=== PATIENT | female | born 1975 | race Two or more races ===

== ENCOUNTER 2017-07-20 14:04 | Inpatient (IN) | payer OTHER ==
[~2017-07-20] VITALS: Ht 165.1 cm; Wt 90.5 kg
[~2017-07-20 14:04] MED LIST: DULO60CA7 PO; OXYC-307 PO; PREN1TAB60 PO; TOPI100T24 PO
[2017-07-20 15:04] VITALS: BP 99/61
[2017-07-20] MEDS ORDERED: D5%-LACTATED RINGERS 1,000 ML IV SCH (17:04)
[2017-07-20] MEDS ORDERED: OXYTOCIN 30U/ 0.9% NaCL 500ML 500 ML IV ONE (17:04)
[2017-07-20] MEDS ORDERED: FLU VACCINE PER PHARMACY IM ONE (17:30)
[2017-07-20] MEDS ORDERED: FLU VACC QS2017-18 (36MOS+) UP/PF 0.5 ML IM-VACC ONE (17:30)
[2017-07-20] MEDS ORDERED: FENTANYL PF 100 MCG/2ML IV PRN (17:30)
[2017-07-20] MEDS ORDERED: ONDANSETRON 2MG/ML, 2ML IVPush PRN (17:30)
[2017-07-20 17:35] LABS: HEMOGLOBIN 11.9 g/dL (11.7-16.4); WHITE BLOOD COUNT 11.6 x10^3/uL (3.4-10)
[2017-07-20] MEDS ORDERED: OXYTOCIN 30U/ 0.9% NaCL 500ML 500 ML ONE (17:45)
[2017-07-20] MEDS ORDERED: MISOPROSTOL 200 MCG TABLET ONE (17:46)
[2017-07-20] MEDS ORDERED: LIDOCAINE 1%, 20ML ONE (17:46)
[2017-07-20] MEDS ORDERED: NEWBORN KIT ONE (17:54)
[2017-07-20] MEDS: LACTATED RINGERS 1,000 ML IV SCH (18:19)
[2017-07-20] MEDS ORDERED: CALCIUM CARBONATE 500 MG TAB.CHEW ONE (18:46)
[2017-07-20] MEDS: CALCIUM CARBONATE 500 MG TAB.CHEW PO PRN (18:54)
[2017-07-20] MEDS ORDERED: OXYTOCIN 30U/ 0.9% NaCL 500ML 500 ML IV PRN (21:50)
[2017-07-20] MEDS ORDERED: FENTANYL PF 100 MCG/2ML ONE (23:04)
[2017-07-20] MEDS: FENTANYL PF 100 MCG/2ML IVPush PRN (23:06)
[2017-07-21] MEDS: LACTATED RINGERS 1,000 ML IV SCH ×6 (00:27→19:18)
[2017-07-21] MEDS ORDERED: FENTANYL PF 100 MCG/2ML ONE ×3 (00:38→05:27)
[2017-07-21] MEDS: FENTANYL PF 100 MCG/2ML IVPush PRN ×3 (00:41→05:30)
[2017-07-21] MEDS ORDERED: BUPIVACAINE/PF 0.25% ONE (08:12)
[2017-07-21] MEDS ORDERED: FENTANYL/BUPIV./NS/PF 250 ML EPIDCONT ONE (08:12)
[2017-07-21] MEDS ORDERED: EPHEDRINE 50 MG/ML, 1ML ONE ×2 (09:04→16:46)
[2017-07-21] MEDS: EPHEDRINE 50 MG/ML, 1ML IVPush PRN ×2 (09:07→09:19)
[2017-07-21] MEDS ORDERED: FENTANYL/BUPIV./NS/PF 250 ML EPIDCONT SCH (09:50)
[2017-07-21] MEDS ORDERED: CALCIUM CARBONATE 500 MG TAB.CHEW ONE (09:51)
[2017-07-21] MEDS: CALCIUM CARBONATE 500 MG TAB.CHEW PO PRN (09:52)
[2017-07-21] MEDS ORDERED: ONDANSETRON 2MG/ML, 2ML IVPush PRN ×2 (10:00→18:30)
[2017-07-21] MEDS ORDERED: LACTATED RINGERS 1,000 ML IVBOLUS PRN (10:00)
[2017-07-21] MEDS ORDERED: AMPICILLIN 2 GM in SODIUM CHLORIDE 0.9% 100 ML IV SCH (13:00)
[2017-07-21] MEDS ORDERED: AMPICILLIN 2 GM in SODIUM CHLORIDE 0.9% 50 ML IV SCH (13:00)
[2017-07-21] MEDS ORDERED: SODIUM CITRATE/CITRIC ACID 30 ML UDC ONE (16:30)
[2017-07-21] MEDS ORDERED: METOCLOPRAMIDE 5 MG/ML, 2ML ONE (16:30)
[2017-07-21] MEDS ORDERED: OXYTOCIN 30U/ 0.9% NaCL 500ML 500 ML IV SCH (16:32)
[2017-07-21] MEDS ORDERED: CEFAZOLIN 1,000 MG ONE (16:46)
[2017-07-21] MEDS ORDERED: OXYTOCIN 10 UNITS/ML, 1ML ONE (16:46)
[2017-07-21] MEDS ORDERED: LIDOCAINE/MPF 2%-EPI 1:200K, 20 ML ONE (16:50)
[2017-07-21] MEDS ORDERED: METOCLOPRAMIDE 5 MG/ML, 2ML IVPush ONE (17:00)
[2017-07-21] MEDS ORDERED: LACTATED RINGERS 1,000 ML IVBOLUS ONE (17:00)
[2017-07-21] MEDS ORDERED: SODIUM CITRATE/CITRIC ACID 30 ML UDC PO ONE (17:00)
[2017-07-21] MEDS ORDERED: AZITHROMYCIN 500 MG in SODIUM CHLORIDE 0.9% 250 ML IV ONE (17:30)
[2017-07-21] MEDS ORDERED: ONDANSETRON 2MG/ML, 2ML ONE (17:51)
[2017-07-21] MEDS ORDERED: KETOROLAC 30 MG/1 ML ONE (17:51)
[2017-07-21] MEDS ORDERED: morphine SULFATE 10 MG/ML, 1ML IV PRN (18:30)
[2017-07-21] MEDS ORDERED: FENTANYL PF 100 MCG/2ML IV PRN (18:30)
[2017-07-21] MEDS ORDERED: MEPERIDINE/PF 25MG/0.5ML IVPush PRN (18:30)
[2017-07-21] MEDS ORDERED: MIDAZOLAM 1 MG/ML, 2ML IV PRN (18:30)
[2017-07-21] MEDS ORDERED: EPHEDRINE 50 MG/ML, 1ML IVPush PRN (18:30)
[2017-07-21] MEDS ORDERED: OXYcodone 5 MG/5 ML ORAL.SOL UDC PO PRN (18:30)
[2017-07-21] MEDS ORDERED: PROMETHAZINE 25 MG/ML, 1ML IV PRN (18:30)
[2017-07-21] MEDS: OXYTOCIN 30U/ 0.9% NaCL 500ML 500 ML IV SCH (19:13)
[2017-07-21] MEDS ORDERED: LACTATED RINGERS 1,000 ML IV SCH (19:13)
[2017-07-21] MEDS: IBUPROFEN 600 MG TABLET PO SCH (19:30)
[2017-07-21] MEDS ORDERED: MISOPROSTOL 200 MCG TABLET PR PRN (19:30)
[2017-07-21] MEDS ORDERED: morphine SULFATE 10 MG/ML, 1ML IVPush PRN ×2 (19:30)
[2017-07-21] MEDS ORDERED: CALCIUM CARBONATE 500 MG TAB.CHEW PO PRN (19:30)
[2017-07-21] MEDS ORDERED: OXYcodone IR 5MG TABLET PO PRN (19:30)
[2017-07-21] MEDS ORDERED: ONDANSETRON 2MG/ML, 2ML IV PRN (19:30)
[2017-07-21] MEDS ORDERED: SIMETHICONE 80 MG CHEW TAB PO PRN (19:30)
[2017-07-21 20:20] VITALS: BP 117/70
[2017-07-21] MEDS: ACETAMINOPHEN 325 MG TABLET PO SCH (23:14)
[2017-07-21 23:30] VITALS: BP 130/69
[2017-07-22] MEDS: KETOROLAC 30 MG/1 ML IV SCH ×4 (00:42→18:29)
[2017-07-22 01:26] LABS: HEMATOCRIT 30.1 % (34.6-47.8); HEMOGLOBIN 10.1 g/dL (11.7-16.4)
[2017-07-22] MEDS: IBUPROFEN 600 MG TABLET PO SCH ×4 (01:30→19:30)
[2017-07-22] MEDS: OXYcodone IR 5MG TABLET PO PRN ×3 (04:10→15:55)
[2017-07-22 04:15] VITALS: BP 112/68
[2017-07-22] MEDS: ACETAMINOPHEN 325 MG TABLET PO SCH ×3 (05:11→18:29)
[2017-07-22] MEDS: LACTATED RINGERS 1,000 ML IV SCH ×2 (05:13→15:13)
[2017-07-22] MEDS: OXYTOCIN 30U/ 0.9% NaCL 500ML 500 ML IV SCH ×2 (05:13→15:13)
[2017-07-22 07:22] VITALS: BP 112/63
[2017-07-22] MEDS: PRENATAL VIT/IRON/FA 1 EACH TABLET PO SCH (09:00)
[2017-07-22] MEDS ORDERED: KETOROLAC 30 MG/1 ML ONE (18:10)
[2017-07-22 19:20] VITALS: BP 115/66
[2017-07-23] MEDS: ACETAMINOPHEN 325 MG TABLET PO SCH ×4 (00:17→17:59)
[2017-07-23] MEDS: OXYcodone IR 5MG TABLET PO PRN ×4 (00:18→17:59)
[2017-07-23] MEDS: IBUPROFEN 600 MG TABLET PO SCH ×4 (00:18→17:59)
[2017-07-23] MEDS: DOCUSATE 100 MG CAPSULE PO PRN ×2 (00:19→12:07)
[2017-07-23] MEDS: LACTATED RINGERS 1,000 ML IV SCH ×2 (01:13→02:11)
[2017-07-23] MEDS: OXYTOCIN 30U/ 0.9% NaCL 500ML 500 ML IV SCH ×2 (01:13→02:11)
[2017-07-23 08:22] VITALS: BP 116/78
[2017-07-23] MEDS: PRENATAL VIT/IRON/FA 1 EACH TABLET PO SCH (12:08)
[2017-07-23 20:00] VITALS: BP 121/79
[2017-07-24] MEDS: OXYcodone IR 5MG TABLET PO PRN ×3 (00:05→12:30)
[2017-07-24] MEDS: IBUPROFEN 600 MG TABLET PO SCH ×3 (00:05→12:30)
[2017-07-24] MEDS: DOCUSATE 100 MG CAPSULE PO PRN ×2 (00:05→12:30)
[2017-07-24] MEDS: ACETAMINOPHEN 325 MG TABLET PO SCH ×3 (00:06→12:30)
[2017-07-24] MEDS ORDERED: IBUP-1222 PO (03:07)
[2017-07-24] MEDS ORDERED: OXYC-302 PO (03:08)
[2017-07-24 07:30] VITALS: BP 127/83
== END 2017-07-24 16:21 | disposition home or self-care (01) | DRG 766 ==
LOC: LDOP 14:04 → LDIP 17:04 → 2NW 07-21 19:57
PROVIDERS: ADMIT Obstetrics & Gynecology; ATTEND Obstetrics & Gynecology
PROC: 10D00Z1 Extraction of Products of Conception, Low, Open Approach (ICD-10-PCS; principal; 2017-07-21)
DX: O62.0 Primary inadequate contractions (principal); O76 Abnormality in fetal heart rate and rhythm complicating labor and delivery; O42.92 Full-term premature rupture of membranes, unspecified as to length of time between rupture and onset of labor; Z37.0 Single live birth; O09.523 Supervision of elderly multigravida, third trimester; Z3A.40 40 weeks gestation of pregnancy
CPT/HCPCS: 36415; 76815; 82803; 85025; 86850; 86900; 88307; 90686; J0290; J0456; J0690; J1885; J2405; J3010; J3490; J2590; J2765; J7050; J7120; J7121

== ENCOUNTER 2017-10-03 13:53 | Observation (INO) | payer OTHER ==
[~2017-10-03] VITALS: Ht 165.1 cm; Wt 75.9 kg
[~2017-10-03 13:53] MED LIST changes: +IBUP-1222 PO; +OXYC-302 PO
[2017-10-03] MEDS ORDERED: LACTATED RINGERS 1,000 ML IV SCH ×2 (14:21→14:37)
[2017-10-03 14:42] VITALS: BP 99/75
[2017-10-03] MEDS ORDERED: LIDOCAINE 1%, 2ML SQ PRN (15:00)
[2017-10-03] MEDS ORDERED: PLEASE ENTER HEIGHT AND WEIGHT MC SCH (15:00)
[2017-10-03 15:05] LABS: HCG UR SG 1.024 (1.003-1.030)
[2017-10-03] MEDS ORDERED: EPINEPHRINE 1 MG/ML, 1ML ONE (15:14)
[2017-10-03] MEDS ORDERED: BUPIVACAINE/PF 0.25% ONE (15:14)
[2017-10-03] MEDS ORDERED: SILVER NITRATE STICK TP ONE (15:14)
[2017-10-03 15:17] LABS: BASOPHILS # (AUTO) 0.02 x10^3/uL (0-0.1); BASOPHILS % (AUTO) 0 % (0-1); EOSINOPHILS # (AUTO) 0.16 x10^3/uL (0-0.4); EOSINOPHILS % (AUTO) 2 % (1-7); LYMPHOCYTES % (AUTO) 29 % (22-44); MD NO; MEAN CORPUSCULAR HEMOGLOBIN 27.9 pg (27.0-34.8); MEAN CORPUSCULAR HGB CONC 33.4 g/dL (32.4-35.8); MEAN CORPUSCULAR VOLUME 83.7 fL (80-100); MEAN PLATELET VOLUME 7.3 fL (7.4-10.4); MONOCYTES # (AUTO) 0.75 x10^3/uL (0.2-0.8); MONOCYTES % (AUTO) 9 % (2-9); NEUTROPHILS # (AUTO) 5.05 x10^3/uL (1.8-6.8); NEUTROPHILS % (AUTO) 60 % (42-75); PLATELET COUNT 352 x10^3/uL (130-400); RED BLOOD COUNT 4.48 x10^6/uL (3.82-5.3); RED CELL DISTRIBUTION WIDTH 15.5 % (9.6-15.2)
[2017-10-03] MEDS ORDERED: MIDAZOLAM 1 MG/ML, 2ML ONE (15:20)
[2017-10-03] MEDS ORDERED: FENTANYL PF 100 MCG/2ML ONE ×2 (15:21→17:11)
[2017-10-03] MEDS ORDERED: SUCCINYLCHOLINE 20 MG/ML, 10ML ONE (15:24)
[2017-10-03] MEDS ORDERED: ROCURONIUM 10 MG/ML,10ML ONE (15:24)
[2017-10-03] MEDS ORDERED: PROPOFOL 10 MG/ML, 20ML ONE (15:24)
[2017-10-03] MEDS ORDERED: CEFAZOLIN 1,000 MG ONE (15:36)
[2017-10-03] MEDS ORDERED: ACETAMINOPHEN 325 MG TABLET PO PRN (16:00)
[2017-10-03] MEDS ORDERED: HYDROmorphone 1 MG/ML, 1ML IV PRN (16:00)
[2017-10-03] MEDS ORDERED: EPHEDRINE 50 MG/ML, 1ML IVPush PRN (16:00)
[2017-10-03] MEDS ORDERED: PROMETHAZINE 25 MG/ML, 1ML IV PRN (16:00)
[2017-10-03] MEDS ORDERED: OXYcodone 5 MG/5 ML ORAL.SOL UDC PO PRN (16:00)
[2017-10-03] MEDS ORDERED: LABETALOL 5MG/ML, 20ML IV PRN (16:00)
[2017-10-03] MEDS ORDERED: hydrALAzine 20 MG/ML, 1ML IV PRN (16:00)
[2017-10-03] MEDS ORDERED: ALBUTEROL SULFATE 2.5 MG/3 ML NPPB PRN (16:00)
[2017-10-03] MEDS ORDERED: METOPROLOL 1 MG/ML, 5ML IV PRN (16:00)
[2017-10-03] MEDS ORDERED: ONDANSETRON 2MG/ML, 2ML IVPush PRN (16:00)
[2017-10-03] MEDS ORDERED: NEOSTIGMINE 1 MG/ML, 10ML ONE (16:51)
[2017-10-03] MEDS ORDERED: DEXAMETHASONE 4 MG/ML, 1ML ONE ×2 (16:51)
[2017-10-03] MEDS ORDERED: GLYCOPYRROLATE 0.4 MG/2 ML, 2ML ONE (16:51)
[2017-10-03] MEDS ORDERED: ONDANSETRON 2MG/ML, 2ML ONE (16:51)
[2017-10-03] MEDS ORDERED: KETOROLAC 30 MG/1 ML ONE (16:52)
[2017-10-03] MEDS ORDERED: ACETAMINOPHEN 650 MG/20.3 ML UDC ONE (17:11)
[2017-10-03] MEDS ORDERED: OXYcodone 5 MG/5 ML ORAL.SOL UDC ONE (17:11)
[2017-10-03] MEDS: FENTANYL PF 100 MCG/2ML IV PRN ×4 (17:20→18:09)
[2017-10-03] MEDS ORDERED: MEPERIDINE/PF 50 MG/ML ONE (17:29)
[2017-10-03] MEDS: MEPERIDINE/PF 25MG/0.5ML IVPush PRN ×2 (17:31→17:40)
[2017-10-03] MEDS ORDERED: ONDANSETRON 2MG/ML, 2ML IV PRN (19:30)
[2017-10-03] MEDS ORDERED: KETOROLAC 30 MG/1 ML IV PRN (19:30)
[2017-10-03] MEDS ORDERED: morphine SULFATE 10 MG/ML, 1ML IV PRN (19:30)
[2017-10-03] MEDS: LACTATED RINGERS 1,000 ML IV SCH (19:30)
[2017-10-03] MEDS: IBUPROFEN 600 MG TABLET PO SCH (22:33)
[2017-10-04 00:31] VITALS: BP 122/78
[2017-10-04] MEDS: OXYcodone/APAP 5/325MG TABLET PO PRN ×3 (00:50→13:28)
[2017-10-04] MEDS: LACTATED RINGERS 1,000 ML IV SCH ×2 (03:30→11:30)
[2017-10-04 04:57] VITALS: BP 105/67
[2017-10-04 06:55] VITALS: BP 105/60
[2017-10-04] MEDS: IBUPROFEN 600 MG TABLET PO SCH (07:29)
[2017-10-04] MEDS ORDERED: PRENATAL VIT/IRON/FA 1 EACH TABLET PO SCH (09:00)
[2017-10-04 13:00] VITALS: BP 118/72
[2017-10-04] MEDS ORDERED: OXYC1TAB7 PO (13:46)
[2017-10-04] MEDS ORDERED: IBUP-1222 PO (13:47)
== END 2017-10-04 14:00 | disposition home or self-care (01) ==
LOC: OR 13:53 → 4NOR 18:30 → OR 22:41 → 4NOR 22:42 → DCLOUNGE 10-04 13:43
PROVIDERS: ADMIT Obstetrics & Gynecology; ATTEND Obstetrics & Gynecology
DX: N83.292 Other ovarian cyst, left side (principal); T83.32XA Displacement of intrauterine contraceptive device, initial encounter; Z30.2 Encounter for sterilization
CPT/HCPCS: 36415; 49322; 58562; 58661; 81025; 85025; 88302; G0378; J0171; J0330; J0690; J1100; J1885; J2175; J2250; J2405; J2704; J2710; J3010; J3490; J7120

== ENCOUNTER → 2018-09-03 | Outpatient (CLI) | payer OTHER ==
[~2018-09-03] MED LIST changes: +OXYC1TAB7 PO
== END | disposition home or self-care (01) ==
LOC: ROC 09:04
PROVIDERS: ATTEND Radiology Radiation Oncology
DX: C53.9 Malignant neoplasm of cervix uteri, unspecified (principal)
CPT/HCPCS: 99214; G0463

== ENCOUNTER 2018-10-08 05:38 | Day surgery (SDC) | payer OTHER, MEDICAID ==
[2018-10-05 13:04] LABS: MEAN CORPUSCULAR HEMOGLOBIN 30.2 pg (27.0-34.8); MEAN CORPUSCULAR HGB CONC 33.7 g/dL (32.4-35.8); MEAN CORPUSCULAR VOLUME 89.6 fL (80-100); MEAN PLATELET VOLUME 6.4 fL (7.4-10.4); PLATELET COUNT 316 x10^3/uL (130-400); RED BLOOD COUNT 4.62 x10^6/uL (3.82-5.3); RED CELL DISTRIBUTION WIDTH 14.8 % (9.6-15.2)
[2018-10-05 13:06] LABS: INTERNATIONAL NORMALIZED RATIO 0.95 (0.93-1.1); PROTHROMBIN TIME 10.1 Seconds (9.6-11.5)
[2018-10-05 13:07] LABS: ALBUMIN 3.5 g/dL (3.4-5.0); ANION GAP 8 mmol/L (5-15); CALCIUM 8.9 mg/dL (8.5-10.1); CHLORIDE 101 mmol/L (98-107)
[2018-10-05 13:11] LABS: ALANINE AMINOTRANSFERASE 82 U/L (12-78); ALKALINE PHOSPHATASE 44 U/L (45-117); BILIRUBIN,TOTAL 0.6 mg/dL (0.2-1.0); CREATININE 0.99 mg/dL (0.55-1.02); TOTAL PROTEIN 7.1 g/dL (6.4-8.2)
[2018-10-05 13:21] LABS: BASOPHILS # (AUTO) 0.01 x10^3/uL (0-0.1); BASOPHILS % (AUTO) 0 % (0-1); EOSINOPHILS # (AUTO) 0.01 x10^3/uL (0-0.4); EOSINOPHILS % (AUTO) 0 % (1-7); LYMPHOCYTES % (AUTO) 4 % (22-44); MD SCAN; MONOCYTES # (AUTO) 0.42 x10^3/uL (0.2-0.8); MONOCYTES % (AUTO) 5 % (2-9); NEUTROPHILS # (AUTO) 7.05 x10^3/uL (1.8-6.8); NEUTROPHILS % (AUTO) 90 % (42-75)
[~2018-10-08] VITALS: Ht 165.1 cm; Wt 74.1 kg
[~2018-10-08 05:38] MED LIST changes: +DEXA4TAB66 PO; +IBUP200T64 PO; +LACT1CAP43 PO; +ONDA4TAB7 PO; +OXYC-306 PO; +OXYC5CAP2 PO; +PREN1TAB79 PO
[2018-10-08] MEDS ORDERED: LACTATED RINGERS 1,000 ML IV SCH (06:11)
[2018-10-08 06:21] VITALS: BP 116/78
[2018-10-08 06:39] LABS: HCG UR SG 1.021 (1.003-1.030)
[2018-10-08] MEDS ORDERED: BUPIVACAINE/PF 0.25% ONE (06:50)
[2018-10-08] MEDS ORDERED: EPINEPHRINE 1 MG/ML, 1ML ONE (06:50)
[2018-10-08] MEDS ORDERED: FENTANYL PF 100 MCG/2ML ONE ×2 (07:13→08:26)
[2018-10-08] MEDS ORDERED: HYDROCORTISONE 100 MG INJ. ONE (07:21)
[2018-10-08] MEDS ORDERED: DEXAMETHASONE 4 MG/ML, 1ML ONE (07:58)
[2018-10-08] MEDS ORDERED: CEFAZOLIN 1,000 MG ONE (07:58)
[2018-10-08] MEDS ORDERED: ONDANSETRON 2MG/ML, 2ML ONE (07:58)
[2018-10-08] MEDS ORDERED: PROPOFOL 10 MG/ML, 20ML ONE (07:58)
[2018-10-08] MEDS: FENTANYL PF 100 MCG/2ML IV PRN ×2 (08:25→08:38)
[2018-10-08] MEDS ORDERED: OXYcodone 5 MG/5 ML ORAL.SOL UDC ONE (08:26)
[2018-10-08] MEDS ORDERED: PROMETHAZINE 25 MG/ML, 1ML IV PRN (08:30)
[2018-10-08] MEDS ORDERED: DIPHENHYDRAMINE 50 MG/ML, 1ML IVPush PRN (08:30)
[2018-10-08] MEDS ORDERED: METOPROLOL 1 MG/ML, 5ML IV PRN (08:30)
[2018-10-08] MEDS ORDERED: PROCHLORPERAZINE 5 MG/ML, 2ML IV PRN (08:30)
[2018-10-08] MEDS ORDERED: KETOROLAC 30 MG/1 ML IV PRN (08:30)
[2018-10-08] MEDS ORDERED: OXYcodone 5 MG/5 ML ORAL.SOL UDC PO PRN (08:30)
[2018-10-08] MEDS ORDERED: MEPERIDINE/PF 25MG/0.5ML IVPush PRN (08:30)
[2018-10-08] MEDS ORDERED: hydrALAzine 20 MG/ML, 1ML IV PRN (08:30)
[2018-10-08] MEDS ORDERED: HALOPERIDOL 5 MG/ML IV PRN (08:30)
[2018-10-08] MEDS ORDERED: LABETALOL 5MG/ML, 20ML IV PRN (08:30)
[2018-10-08] MEDS ORDERED: HYDROmorphone 1 MG/ML, 1ML ONE (08:49)
[2018-10-08] MEDS: HYDROmorphone 2 MG/ML, 1ML IVPush PRN ×3 (08:51→09:03)
== END 2018-10-08 09:45 | disposition home or self-care (01) ==
LOC: OUT 05:38
PROVIDERS: ATTEND Specialist
DX: C53.9 Malignant neoplasm of cervix uteri, unspecified (principal); F32.9 Major depressive disorder, single episode, unspecified; Z88.5 Allergy status to narcotic agent; Z88.8 Allergy status to other drugs, medicaments and biological substances; Z85.828 Personal history of other malignant neoplasm of skin; Z98.890 Other specified postprocedural states; Z79.01 Long term (current) use of anticoagulants
CPT/HCPCS: 36415; 57156; 80053; 81025; 83735; 85025; 85610; 85730; J0171; J0690; J1100; J1170; J1720; J2405; J2704; J3010; J3490

== ENCOUNTER → 2018-10-30 | Outpatient (CLI) | payer OTHER, MEDICAID ==
[2018-10-30 12:44] LABS: BASOPHILS % (AUTO) 0 % (0-1); EOSINOPHILS # (AUTO) 0.04 x10^3/uL (0-0.4); EOSINOPHILS % (AUTO) 1 % (1-7); LYMPHOCYTES # (AUTO) 0.44 x10^3/uL (1-3.4); LYMPHOCYTES % (AUTO) 7 % (22-44); MD NO; MEAN CORPUSCULAR HEMOGLOBIN 30.8 pg (27.0-34.8); MEAN CORPUSCULAR HGB CONC 34.4 g/dL (32.4-35.8); MEAN CORPUSCULAR VOLUME 89.6 fL (80-100); MEAN PLATELET VOLUME 6.2 fL (7.4-10.4); MONOCYTES # (AUTO) 0.69 x10^3/uL (0.2-0.8); MONOCYTES % (AUTO) 12 % (2-9); NEUTROPHILS % (AUTO) 80 % (42-75); PLATELET COUNT 410 x10^3/uL (130-400); RED CELL DISTRIBUTION WIDTH 18.6 % (9.6-15.2)
== END | disposition home or self-care (01) ==
LOC: CFH 11:42
PROVIDERS: ATTEND Radiology Radiation Oncology
DX: C53.0 Malignant neoplasm of endocervix (principal); D61.818 Other pancytopenia
CPT/HCPCS: 36415; 85025

== ENCOUNTER 2018-11-09 07:04 | Outpatient (CLI) | payer OTHER, MEDICAID | END 2018-11-09 23:59 | disposition home or self-care (01) | LOC: ROC 07:04 → EDSTATUS 08-20 17:13 | PROVIDERS: ATTEND Radiology Radiation Oncology | DX: Z08 Encounter for follow-up examination after completed treatment for malignant neoplasm (principal); C53.0 Malignant neoplasm of endocervix; Z88.6 Allergy status to analgesic agent | CPT/HCPCS: 99212; G0463 ==

== ENCOUNTER 2018-12-27 09:03 | Outpatient (CLI) | payer OTHER, MEDICAID | END 2018-12-27 23:59 | disposition home or self-care (01) | LOC: ROC 09:03 | PROVIDERS: ATTEND Radiology Radiation Oncology | DX: Z02.9 Encounter for administrative examinations, unspecified (principal) ==

== ENCOUNTER 2019-01-07 14:47 | Outpatient (CLI) | payer OTHER, MEDICAID | END 2019-01-07 23:59 | disposition home or self-care (01) | LOC: ROC 14:47 | PROVIDERS: ATTEND Radiology Radiation Oncology | DX: C53.0 Malignant neoplasm of endocervix (principal) | CPT/HCPCS: 99213; G0463 ==

== ENCOUNTER 2019-02-14 08:53 | Outpatient (CLI) | payer OTHER, MEDICAID | END 2019-02-14 23:59 | disposition home or self-care (01) | LOC: ROC 08:53 | PROVIDERS: ATTEND Radiology Radiation Oncology | DX: C53.0 Malignant neoplasm of endocervix (principal) | CPT/HCPCS: 99212; G0463 ==

== ENCOUNTER → 2020-06-04 | Outpatient (CLI) | payer MEDICAID ==
[~2020-06-04] MED LIST changes: +B 12 COMPLEX PO; +CANNABIS PO; +GLUC1CAP48 PO; +MULT-90 PO; +[UNRECOGNIZED DRUG - OTHER] PO
== END | disposition home or self-care (01) ==
LOC: STAR 09:34
PROVIDERS: ATTEND Surgery
DX: Z01.812 Encounter for preprocedural laboratory examination (principal); Z20.828 Contact with and (suspected) exposure to other viral communicable diseases; K38.1 Appendicular concretions
CPT/HCPCS: 36415; 87635

== ENCOUNTER 2020-06-09 07:10 | Day surgery (SDC) | payer MEDICAID ==
[~2020-06-09] VITALS: Ht 165.1 cm; Wt 78.7 kg
[~2020-06-09 07:10] MED LIST changes: +BUPIVACAINE/PF 0.5% ONE; +EPINEPHRINE 1 MG/ML, 1ML ONE
[2020-06-09] MEDS ORDERED: LACTATED RINGERS 1,000 ML IV SCH (07:30)
[2020-06-09] MEDS ORDERED: CHLORHEXIDINE 15 ML UDC MM ONE (07:30)
[2020-06-09 07:43] VITALS: BP 103/71
[2020-06-09] MEDS ORDERED: MIDAZOLAM 1 MG/ML, 2ML ONE (08:44)
[2020-06-09] MEDS ORDERED: FENTANYL PF 100 MCG/2ML ONE (08:44)
[2020-06-09] MEDS ORDERED: OXYcodone 5 MG/5 ML ORAL.SOL UDC PO PRN ×2 (09:00→10:00)
[2020-06-09] MEDS ORDERED: ACETAMINOPHEN 325 MG TABLET PO PRN (09:00)
[2020-06-09] MEDS ORDERED: MEPERIDINE/PF 25MG/0.5ML IVPush PRN (09:00)
[2020-06-09] MEDS ORDERED: FENTANYL PF 100 MCG/2ML IV PRN (09:00)
[2020-06-09] MEDS ORDERED: PROMETHAZINE 25 MG/ML, 1ML IVPush PRN (09:00)
[2020-06-09] MEDS ORDERED: CEFAZOLIN 1,000 MG ONE ×2 (09:10)
[2020-06-09] MEDS ORDERED: ROCURONIUM 10MG/ML,5ML ONE (09:10)
[2020-06-09] MEDS ORDERED: SUCCINYLCHOLINE 20 MG/ML, 10ML ONE (09:10)
[2020-06-09] MEDS ORDERED: PROPOFOL 10 MG/ML, 20ML ONE ×2 (09:10)
[2020-06-09] MEDS ORDERED: ONDANSETRON 2MG/ML, 2ML ONE (09:30)
[2020-06-09] MEDS ORDERED: DEXAMETHASONE 4 MG/ML, 1ML ONE ×2 (09:30)
[2020-06-09] MEDS ORDERED: KETOROLAC 30 MG/1 ML ONE (09:31)
[2020-06-09] MEDS ORDERED: SUGAMMADEX 200 MG/2 ML IVPush ONE (09:32)
== END 2020-06-09 12:05 | disposition home or self-care (01) ==
LOC: OUT 07:10
PROVIDERS: ATTEND Surgery
DX: K38.1 Appendicular concretions (principal); D12.1 Benign neoplasm of appendix; K21.9 Gastro-esophageal reflux disease without esophagitis; F12.90 Cannabis use, unspecified, uncomplicated; Z88.5 Allergy status to narcotic agent; Z98.890 Other specified postprocedural states; Z85.41 Personal history of malignant neoplasm of cervix uteri; Z79.899 Other long term (current) drug therapy; Z72.89 Other problems related to lifestyle; Z80.3 Family history of malignant neoplasm of breast; Z80.1 Family history of malignant neoplasm of trachea, bronchus and lung
CPT/HCPCS: 44970; 88304; J0171; J0330; J0690; J1100; J1885; J2250; J2405; J2704; J3010; J7120